=== PATIENT | male | born 1985 ===

== ENCOUNTER 2023-12-22 13:06 | Outpatient (AMB) | payer OTHER, SELFPAY ==
--- NOTE | 2023-12-22 13:11 | HO.SPINEOV ---
Intake Visit Reasons: Lumbar nerve root impingement Intake Note: Mr. Lim is here today c/o neck/back throbbing pain that goes down to the arms also down to his toes making it difficult to walk. 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 This is a 38-year-old male who has an extensive lumbar spine history. He reports having issues back to even when he was a teenager during a sledding accident he has had back pain. Underwent a surgery in [address] Quesada at [facility]. The details are a bit unusual, but the patient tells me that he was supposed to get us two-level fusion but that for some reason only 1 spinal level was operated on. The surgery was done for left leg pain similar to what he has now. Because the pain did not go away after surgery, further imaging was done in the patient was told that his nerve had been severed and that a clean-up operation was needed to be done, and that 6 months after that they could go back and do the next fusion level. The patient underwent these 2 operations and unfortunately did not see any significant improvement. Within the last few years , the patient had another operation by , who was 1 of the neurosurgeons doing spine surgery at [facility]. According to the patient, he was told that they needed to go in and put some kind of reinforcement to the hardware on 1 side. This was done and the patient reports that the pain got significantly better for awhile but ultimately after 2-3 years it came back. He did recently see another spine surgeon at [facility] and they did not really want to talk much about his back set focus more in his neck. He did have a nerve conduction study at 1 point that he tells me revealed that his leg was ??. The problem is, he continues to have daily significant stabbing lightening bolt like pains in his leg when he walks. It travels down his leg into his posterior knee region into his posterior gastrocnemius and into his heel. He has had numerous falls. He is here today to be evaluated with an MRI from [place] showing compression of the nerves at L4-5. Spends most of his days taking Tylenol and ibuprofen as well as marijuana edibles if he needs to. PMH: He had a patent ductus arteriosus when he was a child and that was repaired. He had an appendectomy. Other than that he has mental health issues including anxiety and depression. Obviously the extensive back surgery history. Social hx: He does not smoke, he quit 4 months ago. He had been using edibles but due to recent financial troubles he has not been able to afford them. He quit drinking 5 years ago but was an alcoholic before that. Medications: Propranolol, olanzapine, hydroxyzine, Tylenol, ibuprofen Allergies: No known drug Physical exam: He walks with a cane and an antalgic gait, he has full strength of the lower extremities but absent reflexes at the Achilles bilaterally. He has a large 12 in well healed midline scar in his back. Imaging review: There is a lumbar MRI done at [place] which shows transitional anatomy. He has evidence of postsurgical changes at what the radiologist is calling S1-S2 and L5-S1. These look like interbody cages with pedicle screws. I can see the MRI in 2020 did not have the L5-S1 fusion, so I am wondering if this is what Dr. Wilcox performed. At that time there was foraminal stenosis. In his current MRI he does have some left-sided nerve impingement due to disc bulging and what is suspected to be adjacent segment disease. Impression: 38-year-old male, extensive spinal history as outlined above with 4 operations on his low back and unfortunately continues to have severe burning stabbing pain going down the back of his leg in what sounds like an S1 distribution. He does have back pain as well and that is chronic dating back to his teenage years. He did have success after the last surgery for few years, but the effects wore off and now he continues to have the same exact pain that he had before that surgery. He tells me he had an EMG which showed that his nerve was ??. It sounds like he has a failed back syndrome and I suspect the EMG showed chronic radiculopathy. Because of the complexity of the situation we really need to get the details of the operative notes and the EMG to understand better exactly how much nerve damage he had leading up to his most recent MRI. This is sounding more like something that would benefit from a spinal cord stimulator rather than doing more operations on his spine. His MRI does show some compression on the left at L4-5, but again it is hard to know how to interpret that in lieu of all the other parts of his history that suggests the nerves have been damaged already. Once I have all the records from the surgeries, office notes in the EMGs I will review with Dr. Medina. Thank you for allowing us to care for your patient. The total time spent with this visit with this patient was 45 minutes reviewing history, physical exam, lumbar imaging review, and implementation of treatment plan or further diagnostic testing Heraclio Medina MD,PhD [facility] Coding Level of Care Code New Pt Level 4 (55791) Diagnoses Failed back syndrome M96.1
== END 2023-12-22 14:14 | disposition home or self-care (01) ==
PROVIDERS: PCP Family Medicine; Referring Provider Family Medicine; Visit Provider Physician Assistant
DX: M96.1 Postlaminectomy syndrome, not elsewhere classified (principal)
CPT/HCPCS: 99204

== ENCOUNTER → 2023-12-22 13:06 | Outpatient (BNVA) | payer OTHER, SELFPAY | PROVIDERS: PCP Family Medicine; Visit Provider Physician Assistant | DX: M96.1 Postlaminectomy syndrome, not elsewhere classified (principal) | CPT/HCPCS: 99202 ==

== ENCOUNTER 2024-04-05 15:08 | Outpatient (AMB) | payer OTHER, SELFPAY ==
--- NOTE | 2024-04-05 15:10 | A.SPINEOV_ITS ---
Intake Visit Reasons: Discuss surgery Intake Note: Mr. Lim is here today to Discuss surgery. 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 He is scheduled to undergo an oblique lumbar interbody fusion L4-5 this coming Monday. We went over the procedure again. All questions were answered. Total of 15 minutes was spent in his consult. Pastor Medina MD, PhD Spine Fellowship Trained Neurosurgeon Director, [facility] [place] [facility] Coding Level of Care Code Est Pt Level 2 (53800) Diagnoses Failed back syndrome M96.1
== END 2024-04-05 15:48 | disposition home or self-care (01) ==
PROVIDERS: PCP Family Medicine; Visit Provider Neurological Surgery
DX: M96.1 Postlaminectomy syndrome, not elsewhere classified (principal)
CPT/HCPCS: 99212

== ENCOUNTER → 2024-04-05 15:08 | Outpatient (BNVA) | payer OTHER, SELFPAY | PROVIDERS: PCP Family Medicine; Visit Provider Neurological Surgery | DX: M96.1 Postlaminectomy syndrome, not elsewhere classified (principal) | CPT/HCPCS: 99212 ==

== ENCOUNTER 2024-04-09 06:14 | Inpatient (IN) | payer OTHER, SELFPAY ==
--- NOTE | 2024-03-26 | ECG_ITS ---
Test Reason : PREOP Blood Pressure : / mmHG Vent. Rate : 049 BPM Atrial Rate : 049 BPM P-R Int : 144 ms QRS Dur : 098 ms QT Int : 396 ms P-R-T Axes : 070 072 051 degrees QTc Int : 357 ms Sinus bradycardia Otherwise normal ECG No previous ECGs available Referred By: Dawn Mcrae Electronically Signed By:PURNIMA BELLAMY
[2024-03-26 10:21] VITALS: BP 115/60; PULSE 66; RESP 20; O2SAT 98; BMI 26.7
--- NOTE | 2024-03-26 10:32 | P.CONAN_ITS ---
Documented by User: Dawn Mcrae NP 04/01/24 12:32 HPI - Anesthesia Eval Consult details Narrative: 38yo M for L4-5 Oblique Lumbar Interbody Fusion No recent illness No CP/SOB with moderate activity PDA s/p repair age 2 Asthma: albuterol ~ 1 x monthly Encouraged facial hair trim PMFSH Active Problems Active Problems: All Active Problems Failed back syndrome (Acute) Past Medical History Medical History (Updated 03/26/24 @ 10:34 by Ellie Knox RN) Panic attacks Arthritis Back pain Peptic ulcer Reactive airway disease PDA (patent ductus arteriosus) Alcohol dependence in remission Failed back syndrome Depression Anxiety Family History Family history of problems with anesthesia: No Surgical History Surgical History (Updated 03/26/24 @ 10:13 by Ellie Knox RN) Hx of appendectomy History of back surgery Hx of heart surgery History of Problems with Anesthesia: No Social History Social History Are you a primary inspector health care facilities to a significant other at home: No Do you presently have visiting nurse or other home services: No Patient Tobacco Use Status: Former Tobacco user Tobacco use type: Cigarette Years Smoked: 25 Use of substances other than those prescribed or required for medical reasons: Yes Substance Use Type Other:: edible & smokes Substance Use Frequency: Daily Have you been hit, kicked, punched, or otherwise hurt by someone within the past year? If so, by whom?: No Spiritual Healthcare Practices: none Catholic Healthcare Practices: none Cultural Healthcare Practices: none Are you DNR?: No Advance Directives: No (sister is primary contact) Advance Directives Information Provided: Yes Advance Directives on File: No Recently lost weight without trying: No Eating poorly because of decreased appetite: No Nutrition Risks: No Nutritional Risk Poor oral hygiene: Yes (extracted teeth) Meds Allergies Allergy/AdvReac Type Severity Reaction Status Date / Time aloe Allergy Intermediate reactive Verified 03/26/24 10:17 airway disease (in spray form) talc Allergy Intermediate reactive Verified 03/26/24 10:17 airway disease Home Medications ?Medication ?Instructions ?Recorded ?Confirmed ?Last Taken ?Type albuterol sulfate 90 mcg/actuation 2 puff inhalation Q4H PRN wheezing 03/25/24 03/26/24 Unknown History aerosol inhaler (Ventolin HFA) bupropion HCl 150 mg 24 hr tablet, 150 mg PO BEDTIME 09/3003/26/24 04/08/24 History extended release diclofenac sodium 1 % topical gel 2 g topical QID PRN Pain 03/25/24 03/26/24 Unknown History hydroxyzine HCl 10 mg tablet 20 mg PO BEDTIME 03/25/24 03/26/24 04/08/24 History lidocaine 5 % topical patch 1 patch topical DAILY 03/25/24 03/26/24 Unknown History (Lidoderm) multivitamin 1 tab PO DAILY 03/25/24 03/26/24 04/08/24 History propranolol 10 mg tablet 10 mg PO TID 03/25/24 03/26/24 04/08/24 History Exam Height,Weight and Vital Signs: Height 5 ft 10 in Weight 84.368 kg Last Vital Signs Pulse 66 03/26/24 10:21 Resp 20 03/26/24 10:21 BP 115/60 03/26/24 10:21 Pulse Ox 98 03/26/24 10:21 O2 Del Method Room Air 03/26/24 10:21 Pertinent Lab Results Pertinent Lab Results: Lab Results 03/26/24 03/26/24 Range/Units 11:08 11:16 WBC 10.0 (4.8-10.8) X10*3/uL RBC 4.61 (4.60-5.80) X10*6/uL Hgb 13.8 L (14.0-18.0) g/dl Hct 40.6 L (42.0-52.0) % MCV 88.1 (80.0-98.0) fL MCH 29.9 (27.0-33.0) pg MCHC 34.0 (31.0-36.0) g/dl RDW 11.8 (11.0-16.0) % Plt Count 257 (160-400) X10*3/uL MPV 10.2 (9.4-12.4) fL Absolute Nucleated RBC 0.000 (0.0-0.012) X10*3/uL Nucleated RBC % (auto) 0.0 (0.0-0.2) /100WBC Sodium 141 (135-145) mmol/L Potassium 4.1 (3.3-5.1) mmol/L Chloride 108 (96-108) mmol/L Carbon Dioxide 26 (22-29) mmol/L Anion Gap 11 L (12-20) BUN 17 H (9-16) mg/dL Creatinine 0.90 (0.5-1.4) mg/dL Estim Creat Clear Calc 116.0 Estimated GFR > 60 Random Glucose 103 (60-115) mg/dL Calcium 9.4 (8.4-10.2) mg/dL Blood Type O Positive Antibody Screen NEGATIVE Narrative Narrative: EKG 03/2024 Vent. Rate : 049 BPM Atrial Rate : 049 BPM P-R Int : 144 ms QRS Dur : 098 ms QT Int : 396 ms P-R-T Axes : 070 072 051 degrees QTc Int : 357 ms Sinus bradycardia Otherwise normal ECG No previous ECGs available Airway Mallampati Class: II TM Dist: >3cm Neck ROM: Full Loose/Missing/Broken Teeth: Yes (#7 broken, molars extracted) Heart: RRR Lungs: CTAB Assessment and Plan Assessment Anesthesia Assessment: Anesthesia Plan Discussed and PAT Visit Final Anesthetic Review Family History of Problems with Anesthesia: No History of Problems with Anesthesia: No Documented by User: Prieto Rod MD 04/09/24 08:05 [facility] Past Medical History Medical History (Updated 03/26/24 @ 10:34 by Ellie Knox RN) Panic attacks Arthritis Back pain Peptic ulcer Reactive airway disease PDA (patent ductus arteriosus) Alcohol dependence in remission Failed back syndrome Depression Anxiety Surgical History Surgical History (Updated 03/26/24 @ 10:13 by Ellie Knox RN) Hx of appendectomy History of back surgery Hx of heart surgery Social History Social History Are you a primary inspector health care facilities to a significant other at home: No Do you presently have visiting nurse or other home services: No Patient Tobacco Use Status: Former Tobacco user Tobacco use type: Cigarette Years Smoked: 25 Use of substances other than those prescribed or required for medical reasons: Yes Substance Use Type Other:: edible & smokes Substance Use Frequency: Daily Have you been hit, kicked, punched, or otherwise hurt by someone within the past year? If so, by whom?: No Spiritual Healthcare Practices: none Catholic Healthcare Practices: none Cultural Healthcare Practices: none Are you DNR?: No Advance Directives: No (sister is primary contact) Advance Directives Information Provided: Yes Advance Directives on File: No Recently lost weight without trying: No Eating poorly because of decreased appetite: No Nutrition Risks: No Nutritional Risk Poor oral hygiene: Yes (extracted teeth) Meds Allergies Allergy/AdvReac Type Severity Reaction Status Date / Time aloe Allergy Intermediate reactive Verified 03/26/24 10:17 airway disease (in spray form) talc Allergy Intermediate reactive Verified 03/26/24 10:17 airway disease Home Medications ?Medication ?Instructions ?Recorded ?Confirmed ?Last Taken ?Type albuterol sulfate 90 mcg/actuation 2 puff inhalation Q4H PRN wheezing 03/25/24 03/26/24 Unknown History aerosol inhaler (Ventolin HFA) bupropion HCl 150 mg 24 hr tablet, 150 mg PO BEDTIME 03/25/24 03/26/24 04/08/24 History extended release diclofenac sodium 1 % topical gel 2 g topical QID PRN Pain 03/25/24 03/26/24 Unknown History hydroxyzine HCl 10 mg tablet 20 mg PO BEDTIME 03/25/24 03/26/24 04/08/24 History lidocaine 5 % topical patch 1 patch topical DAILY 03/25/24 03/26/24 Unknown History (Lidoderm) multivitamin 1 tab PO DAILY 03/25/24 03/26/24 04/08/24 History propranolol 10 mg tablet 10 mg PO TID 03/25/24 03/26/24 04/08/24 History Assessment and Plan Final Anesthetic Review NPO: Yes ASA Class: II Final Preanesthetic Review: No Changes in Pt Med Stat, Meds/Allgs Chart Reviewed, Consent Obtained/Reviewed and Anes Risks/Benef Reviewed Patient Risk: Low Procedure Risk: Low Anesthetic Plan Anesthetic Plan: GA Disposition: Standard PACU
[2024-03-26 11:47] LABS: Hematocrit 40.6 % (42.0-52.0); Hemoglobin 13.8 g/dl (14.0-18.0); Mean Corpuscular Hemoglobin 29.9 pg (27.0-33.0); Mean Corpuscular Volume 88.1 fL (80.0-98.0); Mean Platelet Volume 10.2 fL (9.4-12.4); Platelet Count 257 X10*3/uL (160-400); Red Blood Count 4.61 X10*6/uL (4.60-5.80); Red Cell Distribution Width 11.8 % (11.0-16.0)
[2024-03-26 12:16] LABS: Anion Gap 11 (12-20); Blood Urea Nitrogen 17 mg/dL (9-16); Calcium 9.4 mg/dL (8.4-10.2); Carbon Dioxide 26 mmol/L (22-29); Chloride 108 mmol/L (96-108); Estimated Glomerular Filt Rate > 60; Glucose Random 103 mg/dL (60-115); Potassium 4.1 mmol/L (3.3-5.1); Sodium 141 mmol/L (135-145)
[2024-04-09] VITALS (21 sets, daily range): BP systolic 109–146; BP diastolic 61–87; PULSE 67–100; RESP 16–18; TEMP 36.7–38; O2SAT 94–100; BMI 29.9
--- NOTE | ~2024-04-09 | FL_ITS ---
EXAMINATION: FLUOROSCOPY GUIDANCE FOR NEEDLE PLACEMENT CLINICAL INFORMATION: Lumbar fusion COMPARISON: None available. TECHNIQUE: 4 fluoroscopic images FINDINGS: Fluoroscopy during lumbar fusion FLUOROSCOPY TIME: 1 minute 14.9 seconds DOSE AREA PRODUCT: 11.476 Gy-cm2 (guerrier-centimeter squared) FL/FL guidance in OR IMPRESSION: Fluoroscopy during lumbar fusion. Please see operative report for additional information. Electronically signed by: Flori Jeff MD 04/10/2024 09:41 AM EDT
[2024-04-09] MEDS: methocarbamoL 750 MG TABLET PO (06:25)
[2024-04-09] MEDS: Gabapentin 300 MG CAPSULE PO ×3 (06:26→20:25)
[2024-04-09] MEDS: Lactated Ringers 1,000 ML 100 ML IVCONT (06:36)
--- NOTE | 2024-04-09 06:59 | MHC.SHP ---
Pre-Procedural Eval Section A - 24 Hr Update-Section A only Date of Service: 04/09/24 Section B - Complete if H&P > 30 days Chief Complaint: S/P L4-5 OLIF Allergies: Allergies Allergy/AdvReac Type Severity Reaction Status Date / Time aloe Allergy Intermediate reactive Verified 03/26/24 10:17 airway disease (in spray form) talc Allergy Intermediate reactive Verified 03/26/24 10:17 airway disease Review of Systems Sugical H&P ROS: Negative: Constitution, Cardiovascular, Respiratory, Neurological, Psychiatric, Hem-Onc, Allergic/Immunologic, Gastrointestinal, Genitourinary, Musculoskeletal, Integumentary, Endocrine and Eyes/Ears/Nose/Throat Exam Surgical H&P Exam: Not Evaluated: HEENT, Not Evaluated: Heart, Not Evaluated: Lungs, Not Evaluated: Extremities, Not Evaluated: Abdomen, Not Evaluated: Skin and Not Evaluated: Neurological Exam Comment: The patient is alert and oriented. No acute distress. Overall well-appearing. Proposed surgical site has notable scar from previous spine surgery which we are aware of. Plan Diagnosis/Plan: Unchanged I have reviewed the history and physical and performed a pertinent physical examination on my patient. No changes have occurred unless specified. Plan remains the same; L4-5 OLIF with revision of instrumentation at L5-S1. Time Spent With Patient Time: Total time managing care of this patient today _15___ minutes.
--- NOTE | 2024-04-09 10:16 | P.OP_ITS ---
Operative Note Operative Note Date of Service: 04/09/24 Narrative: Preop Diagnosis: 1.) Adjacent degenerative disc disease L4-5; status post L5-S2 fusion 2.) Back pain and left lumbar radiculopathy Procedure: 1) L4-5 discectomy, arthrodesis and implantation cage through an anterolateral, retroperitoneal approach 2) removal previous L5 and S1 posterior instrumented fusion; insertion L4-L5 posterior instrumentation 3) L4-5 posterolateral fusion 4)Injection of 10 cc of Exparel at the transverse process for a muscular erector spinae block and additional Exparel in paravertebral tissue for postop management Consent Informed Consent was obtained for this operation. I have explained the nature, purpose and benefits of the operation. I have discussed the risks and benefit of the operation including possible complications or adverse events with patient/family. Alternative(s) were discussed with the patient with their relative benefits and risks as well as the consequences of not accepting the operation were included in obtaining consent. Surgeon: NIKKY CHARLES MD, PHD Procedure Assisted By: FABIOLA Pierre Description of Procedure This 38-year-old male had 3 previous lumbar surgeries done in another institution. He presented with adjacent lumbar degenerative disc disease back pain and lumbar radiculopathy. The patient was offered an oblique lumbar interbody fusion L4-5 and revision of posterior instrumentation with removal of the previous L5-S1 instrumentation and reinsertion of instrumentation and L4 and L5.. The procedure complications were explained. The patient was consented. The patient was brought to the operating room and endotracheally intubated. The patient was turned in a lateral position with the left side up. Prep and drape was done followed by timeout. A small incision was made in the left lower abdominal quadrant. The muscle fascia was opened after which the 3 muscle layer was split to enter the retroperitoneal space. Dilators were docked in the anterior one third of the L4-5 disc space followed by a retractor. The retractor was opened. The L4-5 disc space was exposed. An annulotomy was done after which an elevator Sawant was used to release the disc material from its endplates and to perforate the contralateral side. A partial discectomy was done. An 8, 10 and 12 mm height trial implant was inserted. The discectomy was completed. The endplates were prepared. An 12 x 50 mm with 6 degree lordosis 4 web cage filled with allograft was inserted into the disc space under fluoroscopic guidance. This resulted in indirect decompression of the nervous structures. The retractor was removed. Hemostasis was done. The incision was closed in 2 layers. Steri- Strips used toapproximate incision. An OpSite with Tegaderm was used to cover the incision. This marked first part of the procedure. The patient was turned prone on the Charly spine table. 2C arms were installed for fluoroscopy. Prep and drape was done followed by a second timeout. 2 paramedian incisions were made over the previous placed L5-S1 instrumentation. Instrumentation was exposed bilaterally. The locking caps were removed as well as the rods. Then the L5 and S1 pedicle screws were removed. A new 7.5 x 50 mm screws inserted in the bilateral L5 pedicles. Two separate placed incisions were made for the L4 pedicle screw placement. The muscle fascia was opened after which the muscle layer was split bluntly to expose the posterolateral gutter. The following steps were taken. A pediguard tap was used to create a transpedicular trajectory into the vertebral body. A K wire was placed. A specially designed instrument was advanced over the K wire to decorticate the posterolateral gutter in preparation for the posterolateral fusion. A pedicle screw was advanced over the K wire and the K wire was removed. The steps were done for the bilateral L4 pedicles. A total of 2 screws were placed with a diameter of 6.5 x 45 mm. The L4 Pedicle screws were connected to the L5 pedicle screws with 45 mm kyle bilaterally and locked down with locking caps. The extensi on towers were removed. The posterolateral gutter was filled with allograft to complete the posterolateral L4-5 fusion Hemostasis was done and the incision was closed in 2 layers. Steri-Strips were used to approximate the incision. An OpSite were taken and was used to cover the incision. All sponge and needle counts were correct. Patient was extubated and transferred in stable is to recovery room. Anesthesia: General Estimated Blood Loss (ml): 35 Duration of Surgery: 2 hours 20 minutes Complications: None Postoperative Plan: Admit to inpatient for observation
[2024-04-09] MEDS: HYDROmorphone HCl 0.5 MG/0.5 ML SYRINGE 0.25 MG IVPUSH ×6 (11:05→11:55)
--- NOTE | 2024-04-09 12:51 | PHA.MEDREC ---
Pharmacy Consult ? Medication Reconciliation Pharmacy has completed the medication reconciliation. Reviewed med rec done by nursing, matched claims
[2024-04-09] MEDS: ceFAZolin Sodium/Dextrose,Iso 2 GM/50 ML PIGGYBACK IV ×2 (13:35→20:27)
[2024-04-09] MEDS: 0.9 % Sodium Chloride 1,000 ML 75 ML IVCONT (13:35)
[2024-04-09] MEDS: Acetaminophen 325 MG TABLET 975 MG PO ×2 (13:35→20:25)
[2024-04-09] MEDS: HYDROmorphone HCl 1 MG/ML SYRINGE IVPUSH ×2 (14:41→20:23)
[2024-04-09] MEDS: Propranolol HCL 10 MG TABLET PO ×2 (14:41→20:25)
[2024-04-09] MEDS: buPROPion HCl XL 150 MG TAB.ER.24H PO (20:25)
[2024-04-09] MEDS: hydrOXYzine HCL 10 MG TABLET 20 MG PO (20:25)
[2024-04-09] MEDS: Ketorolac Tromethamine 15 MG/ML VIAL IVPUSH (23:34)
[2024-04-10] MEDS: HYDROmorphone HCl 1 MG/ML SYRINGE IVPUSH ×2 (00:06→04:56)
[2024-04-10] MEDS: ceFAZolin Sodium/Dextrose,Iso 2 GM/50 ML PIGGYBACK IV (01:39)
[2024-04-10] MEDS: Acetaminophen 325 MG TABLET 975 MG PO (01:40)
[2024-04-10] MEDS: Calcium Carbonate 750 MG TAB.CHEW PO (01:56)
[2024-04-10] MEDS: 0.9 % Sodium Chloride 1,000 ML 75 ML IVCONT (01:57)
[2024-04-10 04:00] VITALS: BP 125/67; PULSE 51; RESP 16; TEMP 36.9; O2SAT 99
--- NOTE | 2024-04-10 07:00 | PM.DS ---
DS: Providers Provider Date of Service: 04/10/24 Date of admission: 04/09/24 06:14 Primary care physician: Vanessa Rodríguez MD DS: Summary Time Attestation Discharge Coordination Time (in mins): 15 Quality: Safe Use of Opioids Does Pt have an Active Cancer Diagnosis on the Problem List?: No Quality: Stroke Does the patient have a stroke diagnosis?: No Physical Exam Vital Signs: Vital Signs: Last Vital Signs Temp 98.5 F 04/10/24 04:00 Pulse 51 04/10/24 04:00 Resp 16 04/10/24 04:00 BP 125/67 04/10/24 04:00 Pulse Ox 99 04/10/24 04:00 O2 Del Method Room Air 04/10/24 04:00 BMI result Body Mass Index 29.9 Discharge Plan Discharge Anticipated Discharge Date/Time: 04/10/24 07:50 Patient Disposition: Home, Self-Care Discharge Diagnosis: s/p L4-5 Lumbar fusion Referrals: Vanessa Rodríguez MD [Primary Care Provider] - 1 Week Discharge Medications: New oxycodone 5 mg tablet See Rx Instructions .ROUTE .COMPLEX PRN (Reason: severe pain (scale score 7-10)) Qty: 30 0RF Rx Instructions: Take 1-2 Tablets by mouth every 4 hours as needed for severe pain. Partial Fill upon patient request. Continued multivitamin Tablet 1 tab PO DAILY propranolol 10 mg tablet 10 mg PO TID albuterol sulfate [Ventolin HFA] 90 mcg/actuation HFA aerosol inhaler 2 puff INHALATION Q4H PRN (Reason: wheezing) hydroxyzine HCl 10 mg tablet 20 mg PO BEDTIME bupropion HCl 150 mg tablet extended release 24 hr 150 mg PO BEDTIME Held lidocaine [Lidoderm] 5 % Adhesive Patch,Medicated 1 patch TOPICAL DAILY Hold Instructions: Resume on 05/01/24. Do not put over surgical site Rx Instructions: leave on most painful area for up to 12 hrs diclofenac sodium 1 % gel 2 g topical QID PRN (Reason: Pain) Hold Instructions: Resume on 05/01/24. Do not put over surgical site Discharge Orders: Discharge Order (Routine); Ordered 04/10/24 Ordered By: Jeffery Moore Diet: Advance to usual diet Activity on Discharge: As tolerated Stand Alone Forms: Patient Portal Discharge page Print Language: Chinese Activity Restrictions/Additional Instructions: After your spinal surgery we ask you to observe the following restrictions/guidelines: Activity: It is normal to feel some discomfort as you increase your activity, but that will improve with time. We ask you avoid heavy lifting or acitivities that cause pain. As a general rule, 8lbs is a safe limit for lifting right after surgery. Walk as much as you feel comfortable but not to exhaustion. You will feel extra tired the first few days after surgery. Stay well hydrated. It is OK to walk up and down stairs You may return to driving when you are off narcotics (such as vicodin, oxycodone, dilaudid, etc), and you are back to normal functional capacity. If you have any concerns please check with office before driving. Return to work is specific to each patient and each surgery, so please speak with your doctor/PA at first follow up. Please bring paperwork such as FMLA at that time if you need it filled out. Medications: We recommend you take 1,000mg Tylenol every 8 hours for the first few weeks after surgery, if you do not have any liver issues and can tolerate this medication. Do not exceed 4,000mg daily. We will give you a short supply of narcotics after surgery (usually one weeks worth). If you need more please call the office but do not use more than prescribed. You will need to give our office 48 hours notice if you need narcotics refilled and we do not fill narcotics on weekends or evenings. If you are on a narcotic, it is a good idea to take a stool softener such as colace or senna to avoid constipation If you take blood thinner such as aspirin, Plavix, Coumadin, Effient, Eliquis etc for conditions such as Afib, DVT, Pulmonary embolus, coronary disease, stents etc please speak with your surgeon about specific details as to when you can resume these medications. You can resume NSAIDs on post op day 1 (eg: Motrin, Naproxen, etc). Follow up: Please call the office, , after surgery to arrange a 3 week follow up for wound check. Wound Care: You may remove your dressing on the first day after surgery. ?You may ?leave open to air. Please do not remove the steri strips underneath. they will fall off on their own in one week. IT IS NORMAL FOR THE WOUND TO OOZE OR BE BLOODY FOR A FEW DAYS AFTER SURGERY. ?IF THIS HAPPENS JUST PLACE NEW DRESSING OVER IT TO AVOID STAINING CLOTHES. You may shower on post op day # 1 We ask that you do not let the water soak the wound. If it does get wet, just towel dry lightly. Please do not scrub your incision or place any type of chemical/ointment on the wound. No tub baths, pools or jacuzzis for one month. If you have any leaking or redness from your wound, or fevers, please call the office. Care Plan Goals: Returned to normal activity as tolerated Health Concerns: Done Plan of Treatment: Follow-up in clinic in 2-3 weeks Assessment: POD: 1 Procedure: L4-5 OLIF Patient reports he has been up OOB ambulating down the ross and to the bathroom. He is otherwise doing well. He feels his symptoms are much better than pre-operatively. He reports resolution of his left leg pain. He had severe low back pain directly after surgery, but now reports only mild-moderate discomfort with good relief with pain medication. He is voiding well, tolerating diet. Afebrile, vital signs stable. Full strength 5/5 UE / LE. Back dressings have some staining without signs of hematoma. No active sanguineous drainage. Area is dry. Plan: Patient meets criteria to be medically discharged home. He was seen at bedside with Dr. Medina. I will send in a prescription of Oxycodone for the patient to help with the acute post-surgical pain. He can take 1-2 tablets every 4 hours as needed, but should assess his tolerance and take the lowest possible dose. He should be taking OTC medication as described above as first line for his pain. Jeffery Medina MD,PhD [facility]
--- NOTE | 2024-04-10 07:06 | HO.NEURO.PN ---
Neurosurgery Operative Note Date of Service: 04/10/24 Narrative: POD: 1 Procedure: L4-5 OLIF Napoleon is a pleasant 38 year old male who is POD:1 s/p L4-5 lumbar fusion with revision posterior instrumentation at L5-S1. . Patient reports he has been up OOB ambulating down the ross and to the bathroom. He is otherwise doing well. He feels his symptoms are much better than pre-operatively. He reports resolution of his left leg pain. He had severe low back pain directly after surgery, but now reports only mild-moderate discomfort with good relief with pain medication. He is voiding well, tolerating diet. Afebrile, vital signs stable. Full strength 5/5 UE / LE. Back dressings have some staining without signs of hematoma. No active sanguineous drainage. Area is dry. Plan: Pleasant 38 year old male who is POD:1 s/p L4-5 lumbar fusion with revision posterior instrumentation at L5-S1. Patient meets criteria to be medically discharged home. He was seen at bedside with Dr. Medina. I will send in a prescription of Oxycodone for the patient to help with the acute post-surgical pain. Jeffery Medina MD,PhD [facility]
[2024-04-10] MEDS: Gabapentin 300 MG CAPSULE PO (07:27)
[2024-04-10] MEDS: oxyCODONE HCl Immed Release 5 MG TABLET 10 MG PO (07:27)
[2024-04-10] MEDS: Multivitamin TABLET 1 TAB PO (07:27)
[2024-04-10 07:40] VITALS: BP 131/65; PULSE 70; RESP 20; TEMP 36.9; O2SAT 98
[2024-04-10] MEDS: Propranolol HCL 10 MG TABLET PO (07:43)
--- NOTE | 2024-04-10 08:29 | MHC.CM.PN ---
Patient lives in a home w/ SO, mother in law and three daughters. Functionally independent but uses cane PRN. No services. PCP Altagracia Rodríguez MD No HCP. CM provided education and offered assistance. Patient declined. DP: Medically cleared for dc home self care. Mother in law to provide transport.
[2024-04-10] MEDS: methocarbamoL 750 MG TABLET PO (09:13)
--- NOTE | 2024-04-10 13:48 | HO.POSTANES ---
Post Anesthesia Evaluation Post Anesthesia Evaluation Date of Service: 04/09/24 Vital Signs: Vital Signs Temp Pulse Resp BP Pulse Ox O2 Del Method 04/10/24 07:40 98.4 F 70 20 131/65 98 Room Air 04/10/24 04:00 98.5 F 51 16 125/67 99 Room Air Anesthesia: General Mental Status: Awake Pain Control: Satisfactory Nausea/Vomiting: None Hydration: Adequate Anesthesia-Related Issues: No Anes. Related Issues
== END 2024-04-10 09:39 | disposition home or self-care (01) | DRG 304 ==
LOC: HO.SSSA 06:19 → HO.S3 10:52
PROVIDERS: Nurse Practitioner; Admitting Provider Neurological Surgery; PCP Family Medicine; Visit Provider Neurological Surgery
PROC: 0SG00A0 Fusion of Lumbar Vertebral Joint with Interbody Fusion Device, Anterior Approach, Anterior Column, Open Approach (ICD-10-PCS; principal; 2024-04-09 07:30)
DX: M51.16 Intervertebral disc disorders with radiculopathy, lumbar region (principal); Z79.899 Other long term (current) drug therapy; Z98.1 Arthrodesis status; Z87.891 Personal history of nicotine dependence
CPT/HCPCS: 36415; 80048; 85027; 86850; 86900; 86901; 93005; 97161; C1713; C9290; J0131; J0665; J0690; J1100; J1171; J1885; J2003; J2250; J2405; J2704; J3010; L8699

== ENCOUNTER → 2024-04-09 06:14 | Outpatient (BNV) | payer OTHER, SELFPAY | PROVIDERS: Admitting Provider Neurological Surgery; PCP Family Medicine; Visit Provider Neurological Surgery | DX: M51.360 Other intervertebral disc degeneration, lumbar region with discogenic back pain only (principal); M54.16 Radiculopathy, lumbar region; M96.1 Postlaminectomy syndrome, not elsewhere classified | CPT/HCPCS: 20930; 22558; 22612; 22840; 22853; 99024; 99499 ==